=== PATIENT | male | born 1980 ===

== ENCOUNTER 2023-06-16 15:29 | Emergency (ER) | payer SELFPAY ==
[~2023-06-16] VITALS: Ht 188 cm; Wt 79.5 kg
[2023-06-16 16:13] VITALS: BP 125/74; PULSE 118; RESP 20; TEMP 98.1; O2SAT 97
== END 2023-06-16 20:51 | disposition home or self-care (01) ==
LOC: ER 15:30
DX: S02.40FA Zygomatic fracture, left side, initial encounter for closed fracture (principal); Y04.8XXA Assault by other bodily force, initial encounter; Y93.89 Activity, other specified; Y92.89 Other specified places as the place of occurrence of the external cause; Y99.8 Other external cause status
CPT/HCPCS: 70450; 99284